=== PATIENT | male | born 1975 | race African-American/Black ===

== ENCOUNTER 2017-11-15 08:55 | Emergency (ER) | payer OTHER ==
[~2017-11-15] VITALS: Ht 175.3 cm; Wt 132.2 kg
[~2017-11-15 08:55] MED LIST: ADIPEX-P37.5 M1 PO; DICLOFENAC SODI75 MG PO; INDOCIN25 MG PO; NOHOMEMEDS; PROZAC10 MG PO; VICODIN,LORT1 TABLET PO
[2017-11-15 09:39] LABS: BASOPHIL (%) 0.2 % (0-1); EOSINOPHIL (%) 1.1 % (0-5); EOSINOPHIL COUNT 0.1 K/uL (0-0.3); HEMATOCRIT 45.9 % (38.0-50.0); HEMOGLOBIN 15.4 G/DL (12.5-16.6); IMMATURE GRANULOCYTE (%) 0.3 % (0.0-0.7); MCH 27.9 PG (29.0-34.0); MCHC 33.6 G/DL (30.0-36.0); MCV 83.2 FL (86-99); MONOCYTE (%) 3.9 % (3-12); MONOCYTE COUNT 0.3 K/uL (0-0.8); NEUTROPHIL (%) 79.5 % (45-76); NEUTROPHIL COUNT 5.3 K/uL (1.8-6.4); PLATELET COUNT 172 K/uL (156-360); RBC DIS.WIDTH-CV 13.4 % (11.8-14.6); RBC DIS.WIDTH-SD 40.8 % (39-53); RED BLOOD COUNT 5.52 M/uL (4.00-5.50); WHITE BLOOD COUNT 6.6 K/uL (4.1-10.2)
[2017-11-15 09:47] LABS: ALBUMIN 4.5 g/dL (3.2-4.8); CHLORIDE 106 mEq/L (99-109); POTASSIUM 4.2 mEq/L (3.7-5.4); SODIUM 141 mEq/L (136-147)
[2017-11-15 09:49] LABS: GLUCOSE 102 mg/dL (70-99); TOTAL PROTEIN 8.3 g/dL (6.4-8.3)
[2017-11-15 09:51] LABS: TOTAL BILIRUBIN 1.5 mg/dL (0.0-1.0)
[2017-11-15 09:53] LABS: ALKALINE PHOSPHATASE 83 IU/L (3-129); GFR ESTIMATE (CALCULATED) > 59 mL/min/ (58.99-99999)
[2017-11-15 09:54] LABS: UREA NITROGEN (BUN) 13 mg/dL (9-23)
[2017-11-15 09:55] LABS: AST (GOT) 20 IU/L (2-34)
[2017-11-15 09:56] LABS: ALT (GPT) 33 IU/L (3-49); LIPASE 13 U/L (1.0-51.0)
[2017-11-15] MEDS ORDERED: BENTYL20 MG PO (13:47)
[2017-11-15] MEDS ORDERED: PRILOSEC20 MG PO (13:47)
[2017-11-15] MEDS ORDERED: ZOFRAN4 MG PO (13:47)
[2017-11-15 14:20] VITALS: BP 105/65
== END 2017-11-15 14:24 | disposition home or self-care (01) ==
LOC: EME 08:55
PROVIDERS: Emergency Medicine
DX: R10.13 Epigastric pain (principal); K76.0 Fatty (change of) liver, not elsewhere classified; R94.31 Abnormal electrocardiogram [ECG] [EKG]; Z98.890 Other specified postprocedural states
CPT/HCPCS: 71045; 76705; 80053; 83690; 85025; 93005; 99281; 99285; J2270; J2405; J7030